=== PATIENT | male | born 1945 | race Caucasian/White ===

== ENCOUNTER 2017-10-08 06:30 | Day surgery (SDC) | payer OTHER, BC ==
[~2017-10-08] VITALS: Ht 188 cm; Wt 90.7 kg
[2017-10-08 06:50] VITALS: BP 154/82
[2017-10-08 10:32] VITALS: BP 147/87
== END 2017-10-08 10:35 | disposition home or self-care (01) ==
LOC: DS 06:30
PROVIDERS: Internal Medicine Gastroenterology
PROC: 0DJD8ZZ Inspection of Lower Intestinal Tract, Via Natural or Artificial Opening Endoscopic (ICD-10-PCS; principal; 2017-10-08 07:30)
DX: Z12.11 Encounter for screening for malignant neoplasm of colon (principal); K57.90 Diverticulosis of intestine, part unspecified, without perforation or abscess without bleeding; K64.8 Other hemorrhoids; Z68.26 Body mass index [BMI] 26.0-26.9, adult; Z86.010 Personal history of colon polyps
CPT/HCPCS: 45378; J1200; J1610; J2250; J2310; J3010; J3490